=== PATIENT | male | born 1960 | race Two or more races ===

== ENCOUNTER → 2023-12-30 10:27 | Outpatient (CLI) | payer OTHER ==
[~2023-12-30 10:27] MED LIST: ATACAND32 MG; NORVASC2.5 MG; TOPROL XL100 MG
[2023-12-30 11:15] LABS: URINE APPEARANCE Clear; URINE BILIRRUBIN Negative (NEGATIVE); URINE BLOOD Negative; URINE COLOR Yellow; URINE GLUCOSE Negative (NEGATIVE); URINE KETONE Negative (NEGATIVE); URINE LEUKOCYTE Negative; URINE NITRATE Negative; URINE PROTEIN Negative (NEGATIVE); URINE UROBILINOGEN 0.2 E.U./dl
[2023-12-30 11:20] LABS: URINE RBC 3.5 uL (0.0-20.8)
[2023-12-30 11:29] LABS: HEMATOCRIT 46.5 % (39.0-48.0); HEMOGLOBIN 15.8 g/dL (13-16.00); MEAN CELL VOLUME 84.5 fL (80.0-100.00); MEAN CORPUSCULAR HEMOGLOBIN 28.7 pg (27.00-32.0); PLATELET COUNT 309 K/uL (150-450); RED CELL DISTRIBUTION WIDTH 14.4 % (11.5-14.5)
[2023-12-30 11:50] LABS: URINE BACTERIA 2.5 uL (0.0-1933); URINE EPITHELIAL CELLS 0.7 uL (0.0-38.8); URINE WBC 0.6 uL (0.0-23.2)
[2023-12-30 12:23] LABS: CALCIUM 9.7 mg/dL (8.5-10.1); CHOL HDL RATIO 5.4 (0-5.0); CREATININE SERUM 0.92 mg/dL (0.70-1.30); GFR 83.36; POTASSIUM 3.97 mEq/L (3.5-5.1); T4 TOTAL 8.85 UG/DL (4.5-12.1); TSH 3.05 uIU/mL (0.358-3.74)
== END | disposition home or self-care (01) ==
LOC: LAB 10:27
PROVIDERS: ATTEND Internal Medicine Cardiovascular Disease
DX: E11.9 Type 2 diabetes mellitus without complications (principal); E03.9 Hypothyroidism, unspecified; E78.2 Mixed hyperlipidemia; I10 Essential (primary) hypertension

== ENCOUNTER 2024-11-21 13:36 | Outpatient (CLI) | payer OTHER | END 2024-11-21 13:49 | disposition home or self-care (01) | LOC: RAD 13:36 | DX: M25.561 Pain in right knee (principal) ==